=== PATIENT | male | born 1965 | race Caucasian/White ===

== ENCOUNTER 2023-02-27 07:01 | Day surgery (SDC) | payer OTHER, BC, SELFPAY ==
[2023-02-27] VITALS (25 sets, daily range): BP systolic 124–174; BP diastolic 76–99; PULSE 71–99; RESP 14–20; TEMP 36–37.7; O2SAT 85–99; BMI 35.1
--- NOTE | 2023-02-27 07:30 | CRLHL7_ITS ---
For Patients: As a result of the Century Cures Act, medical imaging exams and procedure reports are released immediately into your electronic medical record. You may view this report before your referring provider. If you have questions, please contact your health care provider. Indication: Open reduction internal fixation right bimalleolar ankle fracture Technique: Four views Comparison: None Findings/Impression: Four submitted fluoroscopic images show lateral plate and screw fixation of the distal fibula with an anterior to posterior screw which maintains near anatomic alignment. Medial malleolar screw with two wire fixation of the medial malleolus with near anatomic alignment on the submitted views. Hardware partially included at the midfoot. Fluoro Time: 73.6 seconds CAK dose: 2.7798 mGy Dictated by Anselmo Zavala MD @ 02/27/2023 1:29:43 PM (Electronically Signed)
[2023-02-27] MEDS: SODIUM CHLORIDE 0.9 % (FLUSH) 10 ML SYRINGE IVF (07:45)
[2023-02-27] MEDS: LACTATED RINGERS 1000 ML 1,000 ML 100 ML IV ×2 (07:45→09:06)
[2023-02-27] MEDS: fentaNYL 100 MCG/2 ML inj IVP (08:06)
[2023-02-27] MEDS: MIDAZOLAM HCL 1 MG/ML inj IVP (08:07)
--- NOTE | 2023-02-27 08:08 | SUR.PREOP ---
TIME?OUT:?0805 PT/RN/MDA?VERIFICATION?OF?SURGICAL?SITE,?PROCEDURE,?AND?CONSENT OBTAINED?PRIOR?TO?INVASIVE?PROCEDURE. all in agreement
[2023-02-27] MEDS: CEFAZOLIN 1 GM inj 3 GM IVP (08:45)
--- NOTE | 2023-02-27 10:31 | W.ANESCHARGE ---
Anesthesia Charges Start Date/Time Anesthesia Start Date: 02/27/23 Anesthesia Start Time: 08:35 Stop Date/Time Anesthesia Stop Date: 02/27/23
--- NOTE | 2023-02-27 11:03 | W.PM.NB ---
Nerve Block Nerve Block Time Seen by Provider: 08:15 Date Seen: 02/27/23 Type of block requested by surgeon for post-operative analgesia: popliteal Side: right Time out performed: Yes Verification of patient name: Yes Verification of date of : Yes Site marking: site marked Name of person performing procedure: Lex Continuous monitoring Was continuous monitoring of O2 sat, B/P, electronic device monitor, recorded every 15 minutes?: Yes Procedure Checklist: sterile prep, needles and gloves Ultrasound guided. Images saved: Yes Medications given in 5ml increments after negative aspiration: Ropivicaine %: 0.5 mL: 20 Needle gauge: 22 Patient tolerated procedure well: Yes Additional comments: Needle noted adjacent to nerve Block Charges Block Charge (with Pro Fee): Sciatic Nerve Use of Ultrasound Machine for Block: Yes- US Guidance/pain block
--- NOTE | 2023-02-27 11:03 | W.PM.NB ---
Nerve Block Nerve Block Time Seen by Provider: 08:15 Date Seen: 02/27/23 Type of block requested by surgeon for post-operative analgesia: adductor canal Side: right Time out performed: Yes Verification of patient name: Yes Verification of date of : Yes Site marking: site marked Name of person performing procedure: Lex Continuous monitoring Was continuous monitoring of O2 sat, B/P, air sampling and monitoring, recorded every 15 minutes?: Yes Procedure Checklist: sterile prep, needles and gloves Ultrasound guided. Images saved: Yes Medications given in 5ml increments after negative aspiration: Ropivicaine %: 0.5 mL: 20 Needle gauge: 20 Patient tolerated procedure well: Yes Additional comments: Needle noted adjacent to nerve Block Charges Block Charge (with Pro Fee): Femoral Nerve Use of Ultrasound Machine for Block: Yes- US Guidance/pain block
--- NOTE | 2023-02-27 11:04 | W.ANESCHARGE ---
Anesthesia Charges Start Date/Time Anesthesia Start Date: 02/27/23 Anesthesia Start Time: 08:35 Stop Date/Time Anesthesia Stop Date: 02/27/23 Anesthesia Stop Time: 13:03
[2023-02-27] MEDS: BUPIVACAINE 0.5% 30 ML 20 ML INJECTION (12:07)
--- NOTE | 2023-02-27 13:09 | W.ANESCHARGE ---
Anesthesia Charges Start Date/Time Anesthesia Start Date: 02/27/23 Anesthesia Start Time: 08:35 Stop Date/Time Anesthesia Stop Date: 02/27/23 Anesthesia Stop Time: 13:03
--- NOTE | 2023-02-27 13:16 | PM.PROC ---
Procedure Note Date Seen: 02/27/23 Date of procedure: 02/27/23 Will [facility] bill your pro fee for this procedure?: No Pre-op diagnosis: Bimalleolar ankle fracture right Post-op diagnosis: other (1. Bimalleolar ankle fracture right 2. Osteochondral injury talus right) Procedure: 1. ORIF bimalleolar ankle fracture right 2. Micro fracture of the right talus OCD lesion Procedure Description: Hemostasis: Thigh tourniquet 300 mm Hg 120 minutes Materials: Arthrex precontoured fibular plate x1, 3.5 mm cortical screws times 5, washer x1, 3.5 mm cortical locking screws times 4, 3.0 mm locking screws x3, 0.045 smooth K-wires x2, 22 gauge cerclage wire x1, 2.0 mm cortical screw x1. Complications: None apparent Indication for surgery: Patient sustained a bimalleolar ankle fracture it was initially seen in a separate hospital. Was discharged and has elected to have surgical intervention by myself at [facility]. I reviewed the procedure, recovery, expectation potential complications. These include but are not limited to: Poor wound healing, wound infection, nonunion, malunion, delayed union, potential need for future surgery, hardware irritation failure, nerve injury, deep venous thrombosis, pulmonary embolism, and complex regional pain syndrome, Charcot arthropathy possible . He understands risks and consent was obtained. The site marked. Preoperative popliteal and adductor blocks performed by Anesthesia. Nerve stimulator will be left on and bipolar cautery will be used. Procedure detail: Patient brought into the operating room placed supine position. He was placed under general anesthesia. His and prepped draped in sterile fashion. Standard time-out protocol followed. The right limb was exsanguinated and the tourniquet inflated. Linear incision was made over the lateral fibula the lateral malleolus. Incision was carried down through skin subcutaneous tissues. The fascia was incised and reflected. The peroneal muscle was reflected inferiorly exposing the midshaft of the fibula. Fracture was identified and periosteum incised. Vertical fracture orientated from medial to lateral skiving out the lateral side. Fracture was further displaced and the clot removed from the fracture site until clear. There is additional fracture to the anterior aspect of the lateral malleolus with attachments to the anterior distal tib-fib ligament. Once the fracture sites were free of all debris and irrigated reduction forceps was used to bring the fracture into anatomic alignment. The C-arm confirmed excellent alignment. Fracture is temporarily fixated with two 0.045 smooth K-wires. A 3.5 mm cortical screw was then placed between the K-wires across the fracture site using standard lag technique. C-arm confirmed excellent position. Reduction clamp was removed and a lateral pre contoured plate was applied. 3.5 mm cortical screw was placed proximal to the fracture site through the plate increasing the plate to bone. C-arm confirmed excellent position. The plate was slightly anterior to allow for cortical lag screw that we placed initially. Two 3.5 mm locking cortical screws were then placed through the plate and across the fracture site with 1 screw proximal to the lag screw and 1 screw distal to the lag screw. 3.0 mm locking screw x3 is placed in the distal screw holes in the lateral malleolus. two 3.5 mm locking screws were placed proximal to the initial cortical screw the top of the plate. One additional nonlocking 3.5 mm screw placed proximal to the fracture. A oyxno-un-wmwzk reduction forceps was used to bring the anterior fracture fragment into alignment and this was fixated with a 2.0 mm fully-threaded cortical screw. C-arm confirmed anatomic alignment of the fibula. Syndesmotic ligaments were stressed and found to be stable. Space was left for the potential need for the syndesmotic screw or tight rope. Wound was thoroughly irrigated normal sterile saline. Linear incision is made over the medial malleolus. Incision is carried down through skin subcutaneous tissues. The deep fascia was incised. Deltoid ligament had severe disruption the small fracture fragment identified. Fracture fragment was further displaced and the talar dome evaluated. Large piece of cartilage had been skived off the medial talar dome and was removed. Exposed subchondral bone was noted. I performed microfracture with a 1.5 mm drill bit to the lesion. The lesion appeared to be approximately 1 cm by less than 1 cm. Ankle joint was further irrigated with normal sterile saline. Debris and clot were removed from the fracture fragment and medial malleolus. Fracture fragments found to be too small for a 4.0 cannulated screw and also too small and poorly oriented for a hook plate. In light of this we elected to use tension band technique. Fracture fragment was rotated into anatomic alignment and then fixated with a 0.045 smooth K-wire. Second K-wire was placed slightly anterior to the 1st and parallel. C-arm confirmed excellent position. A 3.5 mm cortical screw with washer was placed on the proximal aspect of the medial malleolus but not tightened completely. 22 gauge cerclage wire was in brought around the K-wires and looped around the screw in a wavfip-ds-vdyws fashion and then tensioned centrally. Excellent tension was noted on the cerclage wire and the wire was cut bent flush with the bone. K-wires were bent cut in candy-cane fashion and impacted into the medial malleolus capturing the cerclage wire. C-arm confirmed anatomic alignment of the ankle joint. Stress views of the syndesmosis obtained which showed stable syndesmosis. Both incisions were further irrigated with normal sterile saline. Deltoid ligament was repaired with 2-0 Vicryl. The fascia of both incisions closed with 3-0 Vicryl and 4-0 Monocryl. Skin closed with haley. 20 mL of 0.5% Marcaine plain injected along the incision sites. Sterile dressing was applied. Well-padded ucwid-uzl-cmvy plaster splint placed. His transfer from more PACU vital signs stable and vascular status intact. [facility] monitor his blood pressure and blood sugars. Plan for discharge home tomorrow after physical therapy. Anesthesia: GETA and regional Surgeon: Bart Grover DPM FACFAS Estimated blood loss (mL): 20 Condition: stable Disposition: PACU
--- NOTE | 2023-02-27 13:37 | PC.NURSE ---
Okay'd to DC to floor at this time per Anesthesia.
[2023-02-27] MEDS: ONDANSETRON 2 MG/ML inj 4 MG IVP (13:49)
--- NOTE | 2023-02-27 15:04 | REH.PT ---
Not ready for PT at this time. Will attempt eval tomorrow.
[2023-02-27] MEDS: HYDROmorphone 0.5 mg/0.5 ml inj IVP ×2 (15:55→18:50)
[2023-02-27] MEDS: CEFAZOLIN 1 GM in 0.9 % SODIUM CHLORIDE Mini-bag 100 ML IVPB (15:55)
[2023-02-27] MEDS: 0.9 % SODIUM CHLORIDE 1000 ml 1,000 ML 100 ML IV (15:55)
--- NOTE | 2023-02-27 17:15 | PM.IMCN1 ---
Date of Consult Patient: Rell Patient Consult date: 02/27/23 Requesting Physician: Other Primary Care Provider: Not a Local Provider Consult Narrative Reason for consult: post op care diabetes, HTN, muscle cramps Narrative: Epifanio Hanna is a 57 year old man status post open reduction internal fixation of right buying malleolar ankle fracture and microfracture of the right talus. On 02/17/2023 patient sustained a work related injury. He works as an aerospace welder gun. While at work on 02/17/2023, some very heavy apparatus fell on him, in part causing him the by malleolar right ankle fracture. He was transferred to [facility] and treated there for few days before being discharged from the hospital. He presents now for surgical stabilization of the ankle fracture. I reviewed the preoperative assessment he had with his primary care physician, Dr. Woods, on 02/24/2023, who concludes that patient can proceed with the surgical stabilization of this injury, recommending that he be admitted postoperatively for close monitoring of his glucose and blood pressures. Dr. Woods recommended stopping his low-dose aspirin 81 mg daily and the celecoxib 200 mg twice daily 1 week prior to today's procedure. Additionally he recommended that patient stop taking his losartan, metformin, dulaglutide (Trulicity) 24 hours before the procedure. Recommended a dose reduction in his glargine insulin, decrease the dose by 13 units, on the morning of the procedure. Lastly he recommended he continue to take hydromorphone as needed for pain control. Patient indicates he adhere to these recommendations per his primary care physician. Review of Systems Status of ROS: Reports: 10 or more systems reviewed and unremarkable except as noted in History and below Narrative: Generally speaking blood sugars are not well controlled. Hemoglobin A1c 8.8 on 02/24/2023. He does not use a CPAP machine. Does use a spinal cord stimulator for chronic back pain. Up until the events that occurred on 02/17/2023, he states his chronic back pain had been adequately managed with the spinal cord stimulator in place and other measures. Since the event that occurred on 02/17/2023, he has had a different kind of back pain, not controlled alone with the spinal cord stimulator or other usual means. Claims to have a propensity to muscle cramps in his feet and legs when he is dehydrated or magnesium is low. Attempts to address these concerns on a regular daily basis. Last took his magnesium supplementation this morning. Ordinarily takes magnesium supplementation twice daily. Has irritable bowel syndrome with diarrhea. Manages to keep his bowels controlled with high-dose loperamide 20 mg twice daily. 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 Requests full resuscitation in event of cardiopulmonary demise. Primary care physician is Dr. Woods, [facility]. [facility] Medical History (Updated 02/27/23 @ 17:37 by Nelson Pavon MD) Irritable bowel syndrome with diarrhea ?K58.0 - Irritable bowel syndrome with diarrhea (ICD-10) Insulin dependent diabetes mellitus Depression ?F32.A - Depression, unspecified (ICD-10) Obesity ?E66.9 - Obesity, unspecified (ICD-10) Elevated cholesterol ?E78.00 - Pure hypercholesterolemia, unspecified (ICD-10) Rosacea ?L71.9 - Rosacea, unspecified (ICD-10) Essential hypertension ?I10 - Essential (primary) hypertension (ICD-10) Allergic rhinitis ?J30.9 - Allergic rhinitis, unspecified (ICD-10) Sleep disturbance ?G47.9 - Sleep disorder, unspecified (ICD-10) Gout ?M10.9 - Gout, unspecified (ICD-10) Chronic back pain ?M54.9 - Dorsalgia, unspecified (ICD-10) ?G89.29 - Other chronic pain (ICD-10) Hypotestosteronemia ?E34.9 - Endocrine disorder, unspecified (ICD-10) Degenerative arthritis of spine ?M47.9 - Spondylosis, unspecified (ICD-10) Diabetes mellitus ?E11.9 - Type 2 diabetes mellitus without complications (ICD-10) Chronic diarrhea ?K52.9 - Noninfective gastroenteritis and colitis, unspecified (ICD-10) Osteoarthritis ?M19.90 - Unspecified osteoarthritis, unspecified site (ICD-10) Sebaceous cyst ?L72.3 - Sebaceous cyst (ICD-10) Skin infection ?L08.9 - Local infection of the skin and subcutaneous tissue, unspecified (ICD-10) Low blood magnesium ?R79.0 - Abnormal level of blood mineral (ICD-10) Schwannoma of nerve of trunk ?D36.17 - Benign neoplasm of peripheral nerves and autonomic nervous system of trunk, unspecified (ICD-10) Mild renal insufficiency ?N28.9 - Disorder of kidney and ureter, unspecified (ICD-10) Rigors ?R68.89 - Other general symptoms and signs (ICD-10) Tubular adenoma ?D36.9 - Benign neoplasm, unspecified site (ICD-10) Dilated aortic root ?I77.810 - Thoracic aortic ectasia (ICD-10) Surgical History H/O foot surgery ?Z98.890 - Other specified postprocedural states (ICD-10) History of hernia repair ?Z98.890 - Other specified postprocedural states (ICD-10) ?Z87.19 - Personal history of other diseases of the digestive system (ICD-10) History of hemiarthroplasty of left hip ?Z96.642 - Presence of left artificial hip joint (ICD-10) Hx of appendectomy ?Z90.49 - Acquired absence of other specified parts of digestive tract (ICD-10) Family History Father Diabetes Mother Pancreatic cancer Sister Colon cancer Breast cancer Brother Scrotal cancer Social History What is your current living situation?: I presently have a place to live Problems where you live: no known problems In past 12 months, lack of transportation kept you from medical appts, meetings, work, or getting things needed for daily living: no In the past 12 mos, have been you worried that your food would run out before you had money to buy more?: never true In the past 12 mos, the food you bought just didn't last and you didn't have money to buy more?: never true How often do you have a drink containing alcohol: never How many standard drinks containing alcohol do you have on a typical day: 1 or 2 How often do you have six or more drinks on one occasion: Less than monthly AUDIT-C Alcohol total score: 1 Non-prescribed substance use: denies use How often does anyone, including family, friends and others, physically hurt you: never How often does anyone, including family, friends and others, insult or talk down to you: never How often does anyone, including family, friends and others, threaten you with harm: never How often does anyone, including family, friends and others, scream or curse at you: never Meds Home Medications and Allergies Home Medications Medication Instructions Recorded Confirmed Type albuterol sulfate 90 mcg/actuation 2 puff inhalation Q4H PRN 02/25/23 02/25/23 History aerosol inhaler amlodipine 5 mg tablet 5 mg PO DAILY 02/25/23 02/27/23 History aspirin 81 mg chewable tablet 81 mg PO DAILY 02/25/23 02/27/23 History baclofen 10 mg oral granules in 10 mg PO TID 02/25/23 02/25/23 History packet celecoxib 200 mg capsule (Celebrex) 200 mg PO BID 02/25/23 02/27/23 History diphenhydramine HCl 50 mg capsule 50 mg PO Q6H PRN 02/25/23 02/25/23 History (Banophen) dulaglutide 0.75 mg/0.5 mL 1.5 mg subcut QWEEK 02/25/23 02/25/23 History subcutaneous pen injector gabapentin 600 mg tablet 1,200 mg PO BID 02/25/23 02/27/23 History hydromorphone 4 mg tablet 4 - 6 mg PO Q6H PRN 02/25/23 02/27/23 History (Dilaudid) insulin glargine 100 unit/mL (3 25 unit subcut DAILY 02/25/23 02/27/23 History mL) subcutaneous pen labetalol 300 mg tablet 600 mg PO BID 02/25/23 02/27/23 History loperamide 2 mg capsule 2 mg PO BID 02/25/23 02/27/23 History losartan 100 mg tablet (Cozaar) 100 mg PO DAILY 02/25/23 02/27/23 History magnesium oxide 500 mg capsule 500 mg PO BID 02/25/23 02/27/23 History metformin 1,000 mg tablet 1,000 mg PO DAILY 02/25/23 02/27/23 History methocarbamol 1,000 mg tablet 1,000 mg PO QHS 02/25/23 02/27/23 History multivitamin (Daily Multi-Vitamin 1 tab PO DAILY 02/25/23 02/25/23 History tablet) simvastatin 40 mg tablet 40 mg PO DAILY 02/25/23 02/27/23 History tizanidine 4 mg capsule 4 mg PO Q6-8H PRN 02/25/23 02/25/23 History zolpidem 10 mg tablet (Ambien) 5 mg PO QHS 02/25/23 02/25/23 History Allergies Allergy/AdvReac Type Severity Reaction Status Date / Time COVID-19 (SARS-CoV-2) Allergy Severe Verified 02/25/23 12:35 vaccine, mary GOGO Inhibitors Allergy Unknown Verified 02/25/23 12:35 amoxicillin Allergy Unknown Verified 02/25/23 12:35 atenolol Allergy Unknown Verified 02/25/23 12:35 diatrizoate meglumine Allergy Unknown Verified 02/25/23 12:35 Penicillins Allergy Unknown Verified 02/25/23 12:35 Sulfa (Sulfonamide Allergy Unknown Verified 02/25/23 12:35 Antibiotics) sulfamethoxazole Allergy Unknown Verified 02/25/23 12:35 [From Bactrim] trimethoprim [From Bactrim] Allergy Unknown Verified 02/25/23 12:35 Exam Narrative: Exam Narrative: I examine him in his hospital room. Vision and hearing are grossly normal. He is awake, alert, oriented to self, place, time, situation. Articulate and cooperative. Dentition in fair repair. Dry buccal mucosa. Midline nasal septum. Lungs are clear to auscultation. Heart tones with regular rhythm. Abdomen obese with active bowel sounds, soft, nontender. Moves all 4 extremities. Const: Vital Signs, click to edit/add: Vital Signs - 24 hr 02/27/23 07:30 02/27/23 08:06 02/27/23 08:11 Temperature 97.6 F Pulse Rate 77 76 75 Pulse Rate [Right Pulse Oximeter] Respiratory Rate 16 16 16 Blood Pressure 135/85 162/87 H 152/83 H Blood Pressure [Le ft Arm] Pulse Oximetry 95 97 99 Oxygen Delivery Me thod Room Air Nasal Cannula Nasal Cannula Oxygen Flow Rate 2 2 02/27/23 13:00 02/27/23 13:05 02/27/23 13:10 Temperature 96.8 F L Pulse Rate 76 75 73 Pulse Rate [Right Pulse Oximeter] Respiratory Rate 16 16 14 Blood Pressure 149/84 H 150/98 H 150/92 H Blood Pressure [Le ft Arm] Pulse Oximetry 85 L 96 97 Oxygen Delivery Me thod Non Rebreather Mas k Oxygen Flow Rate 10 6 02/27/23 13:15 02/27/23 13:20 02/27/23 13:25 Temperature Pulse Rate 72 74 75 Pulse Rate [Right Pulse Oximeter] Respiratory Rate 14 14 14 Blood Pressure 136/83 141/91 H 144/95 H Blood Pressure [Le ft Arm] Pulse Oximetry 94 93 92 Oxygen Delivery Me thod Nasal Cannula Oxygen Flow Rate 4 02/27/23 13:30 02/27/23 13:35 02/27/23 13:56 Temperature 97.1 F L 97.3 F L Pulse Rate 77 77 75 Pulse Rate [Right Pulse Oximeter] Respiratory Rate 20 18 20 Blood Pressure 147/89 H 156/96 H Blood Pressure [Le ft Arm] 173/99 H Pulse Oximetry 94 96 Oxygen Delivery Me thod Nasal Cannula Nasal Cannula Oxygen Flow Rate 4 4 02/27/23 14:00 02/27/23 14:15 02/27/23 14:30 Temperature 97.3 F L 97.3 F L 97.5 F L Pulse Rate Pulse Rate [Right Pulse Oximeter] 71 76 79 Respiratory Rate 18 18 16 Blood Pressure Blood Pressure [Le ft Arm] 174/99 H 150/87 H 170/97 H Pulse Oximetry 92 90 90 Oxygen Delivery Me thod Nasal Cannula Nasal Cannula Nasal Cannula Oxygen Flow Rate 3 2 2 02/27/23 14:45 02/27/23 15:01 02/27/23 15:15 Temperature 97.3 F L 97.7 F Pulse Rate Pulse Rate [Right Pulse Oximeter] 80 85 Respiratory Rate 18 16 Blood Pressure Blood Pressure [Le ft Arm] 156/93 H 142/76 H Pulse Oximetry 90 91 91 Oxygen Delivery Me thod Nasal Cannula Nasal Cannula Oxygen Flow Rate 2 2 Assessment and Plan Assessment and plan (1) Bimalleolar ankle fracture: Problem comment: - work related, 02/17/2023. Status: Acute (2) Insulin dependent diabetes mellitus: Problem comment: - A1C 8.8 02/14 per outside records Status: Acute (3) Essential hypertension: Status: Acute (4) Irritable bowel syndrome with diarrhea: Status: Acute Plan 1. Reviewed impression with patient and . 2. Answered their questions. 3. Resume antihypertension medications. 4. Sliding scale insulin while in hospital. 5. Will follow with podiatry service while patient is in hospital.
--- NOTE | 2023-02-27 17:50 | PC.NURSE ---
Shift Summary: Patient pleasant and cooperative. Able to turn and reposition self in bed, right leg elevated on 2 pillows, brought in cushion for bottom while in bed. Patient with chronic back pain, managed with repositioning. Vitals stable, BP elevated, weaned off oxygen o2 sat <90% on RA. Had x2 emesis when arrived from PACU, managed with medication see APR. Pain at worst rated 5/10, mostly in back. Tolerating fluids, nausea has resolved.
[2023-02-27] MEDS: HYDROmorphone 2 MG TABLET PO (20:00)
[2023-02-27] MEDS: TIZANIDINE HCL 4 MG TABLET PO (20:52)
[2023-02-27] MEDS: LOPERAMIDE HCL 2 MG CAPSULE PO (20:52)
[2023-02-27] MEDS: GABAPENTIN 600 MG TABLET 1200 MG PO (20:53)
[2023-02-27] MEDS: BACLOFEN 10 MG TABLET PO (20:53)
[2023-02-27] MEDS: ZOLPIDEM 5 MG TABLET PO (20:53)
[2023-02-27] MEDS: INSULIN ASPART 100 UNIT/ML SUBCUT (21:02)
[2023-02-27] MEDS: LABETALOL HCL 100 MG TABLET 600 MG PO (21:37)
[2023-02-28] MEDS: HYDROmorphone 2 MG TABLET PO ×4 (02:57→09:01)
[2023-02-28] MEDS: 0.9 % SODIUM CHLORIDE 1000 ml 1,000 ML 100 ML IV (02:58)
[2023-02-28 03:00] VITALS: BP 157/89; PULSE 97; RESP 20; TEMP 37.1; O2SAT 90
[2023-02-28] MEDS: HYDROmorphone 0.5 mg/0.5 ml inj IVP ×3 (03:55→05:48)
[2023-02-28] MEDS: TIZANIDINE HCL 4 MG TABLET PO (05:20)
[2023-02-28] MEDS: hydrOXYzine pamoate 25 MG CAPSULE PO (05:20)
--- NOTE | 2023-02-28 05:56 | PC.NURSE ---
End of shift report [id number]: Patient alert and oriented x 4. Pain reported to back and right lower extremity. Pain appeared to be well managed until around 5am when patient reporting increased pain to right ankle, he feels the block is wearing off and he is now having throbbing pain. CMS to RLE intact, toes that are visible with cast have good cap refill and are warm to the touch. IV hydration continued through the night, patient request with history of dehydration which contributes to cramping of lower extremities. Non weight bearing to RLE, patient did pivot transfer x 1 to [facility]. Denies any nausea or vomiting.
[2023-02-28 06:40] LABS: Lactate* 0.8 mmol/L (0.5-1.9)
[2023-02-28 06:48] LABS: Chloride* 100 mmol/L (96-114)
[2023-02-28 06:49] LABS: Potassium* 4.1 mmol/L (3.6-5.1); Sodium* 135 mmol/L (135-149)
[2023-02-28 06:51] LABS: Creatinine* 0.9 mg/dL (0.5-1.5); Est. Creatinine Clearance* 102.75; Estimated Glomerular Filt Rate 98 ml/min
[2023-02-28 06:52] LABS: Anion Gap 7 mEq/L (7-15); Blood Urea Nitrogen* 11 mg/dL (7-30); Calcium* 8.7 mg/dL (8.4-10.6); Carbon Dioxide* 28 mmol/L (20-32); Glucose* 241 mg/dL (60-115); Magnesium* 1.6 mg/dL (1.5-2.6); Phosphorus* 3.7 mg/dL (2.5-4.5)
[2023-02-28 06:54] LABS: Hematocrit 34.8 % (37.0-53.0); Hemoglobin* 11.7 gm/dL (13.5-17.5); Mean Corpuscular HGB Conc 34 gm/dL (32-36); Mean Corpuscular Hemoglobin 29 pg (26-34); Mean Corpuscular Volume 85 fL (80-100); Platelet Count* 162 K/uL (140-440); Red Blood Count 4.08 m/uL (4.30-5.90)
[2023-02-28 07:00] VITALS: BP 117/74; PULSE 87; RESP 16; TEMP 36.8; O2SAT 90
[2023-02-28 07:26] LABS: Slide Review Reflex No
[2023-02-28] MEDS: INSULIN ASPART 100 UNIT/ML SUBCUT (08:08)
[2023-02-28] MEDS: CEFAZOLIN 1 GM in 0.9 % SODIUM CHLORIDE Mini-bag 100 ML IVPB ×2 (08:08)
[2023-02-28] MEDS: BACLOFEN 10 MG TABLET PO (09:01)
[2023-02-28] MEDS: AMLODIPINE 5 MG TABLET PO (09:01)
[2023-02-28] MEDS: LOPERAMIDE HCL 2 MG CAPSULE PO (09:01)
[2023-02-28] MEDS: LOSARTAN POTASSIUM 50 MG TABLET 100 MG PO (09:01)
[2023-02-28] MEDS: GABAPENTIN 600 MG TABLET 1200 MG PO (09:01)
[2023-02-28] MEDS: LABETALOL HCL 100 MG TABLET 600 MG PO (09:03)
--- NOTE | 2023-02-28 09:17 | W.PM.PODPN ---
Podiatry-PN: Jewell Subjective Time Seen by Provider: 08:45 Date Seen: 02/28/23 Interval history: He is seen bedside postop day 1 following ORIF trimalleolar ankle fracture. Patient states he is doing extremely well until about 4:00 a.m. this morning. It is when the block wore off he started having increasing pain. He states he has pain of 8 out 10 on a pain scale but it is being controlled well with the Dilaudid. Is about to start physical therapy and will work with will be them on her crutches and knee walker training. Overall he is pleased with his current progress and would like to go home today. Exam Narrative: Exam Narrative: General: No distress but noticeable discomfort due to right ankle surgery. Vascular: Capillary fill time normal to all digits. Neuro: Sensate to light touch to the digits. Musculoskeletal: Normal muscle strength of the quads. Able to move toes. Derm: Splint is clean dry and intact with no bloody strike through. Assessment: S/p ORIF bimalleolar ankle fracture right postop day 1 Plan: Overall Epifanio is doing excellent. He is going to physical therapy this morning and then he should be ready for discharge. Has Dilaudid at home. I will send an additional prescription for Vistaril into his pharmacy. He will continue with nonweightbearing to the right lower extremity. Throughout his hospital course he did have some elevated blood pressure this did improve significantly overnight. He has slightly elevated this morning but is starting PT and has some increased pain. Her sugars remain a little high reviewed he is going to continue to be diligent home monitoring and continues current medications for his diabetes. Discharge home today. Const: Vital Signs, click to edit/add: Vital Signs - 24 hr 02/27/23 13:00 02/27/23 13:05 02/27/23 13:10 Temperature 96.8 F L Pulse Rate 76 75 73 Pulse Rate [Right Pulse Oximeter] Respiratory Rate 16 16 14 Blood Pressure 149/84 H 150/98 H 150/92 H Blood Pressure [Le ft Arm] Pulse Oximetry 85 L 96 97 Oxygen Delivery Me thod Non Rebreather Mas k Oxygen Flow Rate 10 6 02/27/23 13:15 02/27/23 13:20 02/27/23 13:25 Temperature Pulse Rate 72 74 75 Pulse Rate [Right Pulse Oximeter] Respiratory Rate 14 14 14 Blood Pressure 136/83 141/91 H 144/95 H Blood Pressure [Le ft Arm] Pulse Oximetry 94 93 92 Oxygen Delivery Me thod Nasal Cannula Oxygen Flow Rate 4 02/27/23 13:30 02/27/23 13:35 02/27/23 13:56 Temperature 97.1 F L 97.3 F L Pulse Rate 77 77 75 Pulse Rate [Right Pulse Oximeter] Respiratory Rate 20 18 20 Blood Pressure 147/89 H 156/96 H Blood Pressure [Le ft Arm] 173/99 H Pulse Oximetry 94 96 Oxygen Delivery Me thod Nasal Cannula Nasal Cannula Oxygen Flow Rate 4 4 02/27/23 14:00 02/27/23 14:15 02/27/23 14:30 Temperature 97.3 F L 97.3 F L 97.5 F L Pulse Rate Pulse Rate [Right Pulse Oximeter] 71 76 79 Respiratory Rate 18 18 16 Blood Pressure Blood Pressure [Le ft Arm] 174/99 H 150/87 H 170/97 H Pulse Oximetry 92 90 90 Oxygen Delivery Me thod Nasal Cannula Nasal Cannula Nasal Cannula Oxygen Flow Rate 3 2 2 02/27/23 14:45 02/27/23 15:01 02/27/23 15:15 Temperature 97.3 F L 97.7 F Pulse Rate Pulse Rate [Right Pulse Oximeter] 80 85 Respiratory Rate 18 16 Blood Pressure Blood Pressure [Le ft Arm] 156/93 H 142/76 H Pulse Oximetry 90 91 91 Oxygen Delivery Me thod Nasal Cannula Nasal Cannula Oxygen Flow Rate 2 2 02/27/23 15:45 02/27/23 17:00 02/27/23 18:00 Temperature 97.7 F 98.7 F 98.7 F Pulse Rate Pulse Rate [Right Pulse Oximeter] 84 86 95 Respiratory Rate 16 16 18 Blood Pressure Blood Pressure [Le ft Arm] 124/77 141/77 H 142/78 H Pulse Oximetry 92 93 91 Oxygen Delivery Me thod Room Air Room Air Room Air Oxygen Flow Rate 02/27/23 19:00 02/27/23 20:00 02/27/23 23:00 Temperature 98.9 F 99.4 F Pulse Rate Pulse Rate [Right Pulse Oximeter] 90 99 99 Respiratory Rate 18 20 20 Blood Pressure Blood Pressure [Le ft Arm] 135/90 H 148/83 H Pulse Oximetry 96 95 Oxygen Delivery Me thod Room Air Room Air Oxygen Flow Rate 02/28/23 03:00 Temperature 98.8 F Pulse Rate Pulse Rate [Right Pulse Oximeter] 97 Respiratory Rate 20 Blood Pressure Blood Pressure [Le ft Arm] 157/89 H Pulse Oximetry 90 Oxygen Delivery Me thod Room Air Oxygen Flow Rate Documenting provider has reviewed patient's vital signs: yes Podiatry-PN: [facility] Labs: Laboratory Results - last 24 hr 02/28/23 02/28/23 04:00 06:01 WBC 9.50 RBC 4.08 L Hgb 11.7 L Hct 34.8 L MCV 85 MCH 29 MCHC 34 Plt Count 162 Sodium 135 Potassium 4.1 Chloride 100 Carbon Dioxide 28 Anion Gap 7 BUN 11 Creatinine 0.9 Estimated Creat Clear 102.75 Estimated GFR 98 Glucose 241 H Lactate 0.8 Calcium 8.7 Phosphorus 3.7 Magnesium 1.6
--- NOTE | 2023-02-28 12:08 | PC.NURSE ---
Shift Summary: Patient pleasant and cooperative, up with SBA, pivot to BSC. Worked with PT/OT. Vitals stable and WNL. Pain well controlled with medication and ice pack over area. Right leg with cast, CLINICAL DIETICIAN <3sec, toes warm, informed patient and how to assess circulation prior to discharge. Patient voiding large amounts, saline locked prior to therapy. IV removed with catheter intact. reviewed discharge instructions. Seen by surgeon prior to discharge. Patient discharged @ 1115 via wheelchair.
--- NOTE | 2023-02-28 12:32 | REH.OT ---
OT: PT reports patient asking for DME resources. OT met with patient and spouse to provide community DME resources with patient planning to obtain tub transfer bench. Patient does not have OT orders and decline need for OT for further instruction as he has obtained other DME and been managing ADLs with spouse assist since 02/17/23. spouse reports she is able to continue to provide level of assist he is requring.
== END 2023-02-28 11:15 | disposition home or self-care (01) ==
LOC: OR 07:06 → MEDSURG 07:10
PROVIDERS: Internal Medicine; Visit Provider Podiatrist
PROC: (CPT 27814; principal; 2023-02-27 07:30)
DX: S82.841A Displaced bimalleolar fracture of right lower leg, initial encounter for closed fracture (principal); S92.141A Displaced dome fracture of right talus, initial encounter for closed fracture; G89.18 Other acute postprocedural pain; E11.9 Type 2 diabetes mellitus without complications; I10 Essential (primary) hypertension; K58.0 Irritable bowel syndrome with diarrhea
CPT/HCPCS: 27814; 28445; 01480; 36415; 64445; 64447; 73600; 76000; 76942; 80048; 82962; 83605; 83735; 84100; 85027; 97116; 97161; 97530; A4580; A9270; C1713; J0330; J0665; J0690; J1170; J2250; J2405; J2704; J2795; J3010; J3475; J3490; J7030; J7120

== ENCOUNTER 2023-05-22 09:30 | Outpatient (RCR) | payer OTHER, SELFPAY | END 2023-09-19 23:59 | disposition home or self-care (01) | PROVIDERS: Visit Provider Podiatrist | DX: S82.841A Displaced bimalleolar fracture of right lower leg, initial encounter for closed fracture (principal); M25.571 Pain in right ankle and joints of right foot; Z74.09 Other reduced mobility; M62.81 Muscle weakness (generalized); R26.9 Unspecified abnormalities of gait and mobility; Z51.89 Encounter for other specified aftercare | CPT/HCPCS: 97110; 97140; 97161 ==